=== PATIENT | male | born 1945 | race Caucasian/White ===

== ENCOUNTER → 2019-03-21 | Outpatient (CLI) | payer MEDICARE, OTHER ==
--- NOTE | 2019-03-21 15:02 | Diagnostic Imaging Report ---
INDICATION: Chronic low back pain. Three views were obtained. FINDINGS: There is right convexity degenerative lumbar rotoscoliosis. Vertebral body heights are well maintained. There is no spondylolysis or spondylolisthesis. No fractures are identified. There is multilevel degenerative disc disease and lower lumbar hypertrophic degenerative facet disease. IMPRESSION: Diffuse lumbar spondylosis and multilevel degenerative disc disease as described. Dictated by: Dictated on workstation # [id number]
== END ==
LOC: RAD FS 13:36
PROVIDERS: ATTEND Nurse Practitioner
DX: M47.816 Spondylosis without myelopathy or radiculopathy, lumbar region (principal); M51.36 Other intervertebral disc degeneration, lumbar region
CPT/HCPCS: 72100